=== PATIENT | female | born 1980 ===

== ENCOUNTER 2016-11-24 09:24 | Day surgery (SDC) | payer MEDICAID ==
[2016-11-19 09:13] VITALS: BMI 26.9
[2016-11-24] MEDS ORDERED: Midazolam 2 MG/2 ML VIAL ONE (09:47)
[2016-11-24] MEDS ORDERED: Succinylcholine Chloride 20 mg/ml Syr (5 ml) IV ONE (09:47)
[2016-11-24] MEDS ORDERED: Neostigmine Methylsulfate 3mg/3ml Syringe IV ONE ×2 (09:47→11:32)
[2016-11-24] MEDS ORDERED: Propofol 10 mg/ml Inj (20 ML) ONE (09:47)
[2016-11-24] MEDS ORDERED: Bupivacaine-Epi 0.25%-1:200,000 PF Inj ONE (10:10)
[2016-11-24] MEDS ORDERED: Lidocaine 1% Inj (20ml) ONE (10:10)
[2016-11-24] MEDS ORDERED: ceFAZolin IV 1 gm in Dextrose 1 GM/50 ML BAG IVPB ONE (10:42)
[2016-11-24] MEDS ORDERED: Lidocaine 4% (Laryng-O-Jet) Kit MM ONE ×2 (10:47→11:32)
[2016-11-24] MEDS ORDERED: Morphine 4 MG/ML VIAL ONE (12:24)
--- NOTE | 2016-11-24 12:40 | PCM.SURG1 ---
Surgeon's Initial Post Op Note - Surgeon's Notes Surgeon: Dr. boo Bee Farmer: dharmesh Alaniz PGY2 Type of Anesthesia: General Endo Pre-Operative Diagnosis: cholelithiasis Operative Findings: Cholelithiasis Post-Operative Diagnosis: Cholelithiasis Operation Performed: Robot assisted laparoscopic cholecystectomy Specimen/Specimens Removed: gallbladder Estimated Blood Loss: EBL {In ML}: 10 Blood Products Given: N/A Drains Used: No Drains Post-Op Condition: Good Date of Surgery/Procedure: 11/24/16 Time of Surgery/Procedure: 12:40
[2016-11-24] MEDS ORDERED: HYDROmorphone 0.5 mg/0.5 ml ISec IVP PRN (12:43)
[2016-11-24] MEDS ORDERED: Oxycodone/Acetaminophen 5/325 mg Tab PO PRN (13:00)
[2016-11-24] MEDS: HYDROmorphone 0.5 mg/0.5 ml ISec IVP PRN ×2 (13:01→13:20)
[2016-11-24] MEDS ORDERED: DiphenhydrAMINE 50 mg/ml Inj IM STA (13:47)
[2016-11-24] MEDS ORDERED: DiphenhydrAMINE 50 mg/ml Inj IVP ONE ×2 (14:00→15:15)
[2016-11-24] MEDS ORDERED: DiphenhydrAMINE 50 mg/ml Inj ONE (14:50)
[2016-11-24 14:56] VITALS: O2SAT 100
[2016-11-24 16:02] VITALS: BP 112/76; PULSE 69; RESP 18; TEMP 97.1
--- NOTE | 2016-11-24 23:31 | OP ---
PROCEDURE DATE: 11/24/2016 PREOPERATIVE DIAGNOSES: Cholelithiasis and chronic cholecystitis. POSTOPERATIVE DIAGNOSES: Cholelithiasis and chronic cholecystitis. PROCEDURE DONE: Robotic cholecystectomy. PROCEDURE DONE BY: Dr. Paredes. TANBARK PEELER: Flip Singh, PGY-2 resident. TYPE OF ANESTHESIA: General endotracheal tube anesthesia. ESTIMATED BLOOD LOSS: Around 10 mL. DRAIN: None. PATHOLOGY: Gallbladder with gallstone was sent for the pathology. COMPLICATIONS: None. INTRAOPERATIVE FINDINGS: The patient had changes of chronic cholecystitis and cholelithiasis and on intraoperative steps, this is a 36-year-old female who was diagnosed with chronic cholecystitis and cholelithiasis and the patient was consented for the laparoscopic-assisted robotic cholecystectomy, possible open, brought to the OR, placed supine on the operating table. After induction of the anesthesia, abdomen was prepped and draped in the usual sterile fashion. A supraumbilical transverse incision was made. After incising skin and subcutaneous tissue, the robotic camera port was placed, another three 8 mm robotic camera was placed in upper abdomen. Robot was brought in. Arm 1 and arm 2 were docked and the patient was placed in right side upright position before docking the robot and the gallbladder was retracted cranially. Calot triangle dissection was done. Cystic duct and cystic artery were identified. The intraop firefly was used to identify the ductal anatomy. Now, the cystic duct and cystic artery were clipped at 3 places and cut in between 2 clips nearby the gallbladder, and gallbladder was dissected free from gallbladder fossa, taken in the EndoCatch bag, taken out through the umbilical port site and sent to the table for the pathology. There was proper hemostasis in each and every part of the procedure and all the ports were taken out under vision, pneumo was deflated. Umbilical port site was closed in 2 layers, the fascia with a 0 Vicryl interrupted suture, skin with a 4-0 Monocryl and dry sterile dressing was applied. The patient tolerated the procedure well. Count of the instrument was correct. There was no apparent complication. Jonny Paredes MD [facility] # [id number]
== END 2016-11-24 18:03 | disposition home or self-care (01) ==
LOC: C.SDS 09:24
PROVIDERS: ATTEND Surgery Surgical Critical Care
DX: K80.10 Calculus of gallbladder with chronic cholecystitis without obstruction (principal)
CPT/HCPCS: 47562; 88304; J0131; J0690; J1100; J1170; J1200; J2001; J2250; J2270; J2405; J2704; J2710; J2765; J3010; J7030

== ENCOUNTER 2016-12-03 11:14 | Day surgery (SDC) | payer MEDICAID ==
[2016-11-19 09:12] VITALS: BMI 26.9
[2016-12-03] MEDS ORDERED: ceFAZolin IV 1 gm in Dextrose 1 GM/50 ML BAG IVPB ONE (12:15)
[2016-12-03] MEDS ORDERED: Lidocaine 1% Inj (20ml) ONE (12:15)
[2016-12-03] MEDS ORDERED: Bupivacaine/Epi 0.25%-1:200,000 10 ml PF inj IJ ONE (12:15)
[2016-12-03] MEDS ORDERED: Lactated Ringer's 1,000 ML IV ONE (12:25)
[2016-12-03] MEDS ORDERED: Midazolam 2 MG/2 ML VIAL ONE (12:27)
--- NOTE | 2016-12-03 13:11 | PCM.SURG1 ---
Surgeon's Initial Post Op Note - Surgeon's Notes Surgeon: Dr. Cardozo Aircraft Accessories Mechanic: Ria Drummond Type of Anesthesia: Local Pre-Operative Diagnosis: Sebaceous cyst of the back Operative Findings: Sebaceous cyst 1 by 0.5 cm Post-Operative Diagnosis: Sebaceous cyst Operation Performed: Excision of sebaceous cyst of the back Specimen/Specimens Removed: Sebaceous cyst Estimated Blood Loss: EBL {In ML}: 1 Blood Products Given: N/A Drains Used: No Drains Post-Op Condition: Good Date of Surgery/Procedure: 12/03/16 Time of Surgery/Procedure: 13:11
[2016-12-03] MEDS ORDERED: Oxycodone/Acetaminophen 5/325 mg Tab PO PRN (14:00)
[2016-12-03 15:24] VITALS: BP 122/80; PULSE 77; RESP 20; TEMP 98.2; O2SAT 99
--- NOTE | 2016-12-06 03:02 | OP ---
PROCEDURE DATE: 12/03/2016 PREOPERATIVE DIAGNOSIS: Sebaceous cyst of the right flank, 2 x 2 cm size. POSTOPERATIVE DIAGNOSIS: Sebaceous cyst of the right flank, 2 x 2 cm size. PROCEDURE DONE: Excision of sebaceous cyst of the right flank, 2 x 2 cm size. Layered simple closure of wound 2x1 cm SURGEON: Jonny Paredes MD FINISHING TECHNICIAN: Maira. TYPE OF ANESTHESIA: Local anesthesia plus sedation. ESTIMATED BLOOD LOSS: Around 10 mL DRAINS: None. PATHOLOGY: Sebaceous cyst was sent to the pathology. COMPLICATIONS: None. INTRAOPERATIVE FINDINGS: The patient had approximately 2 x 2 cm sebaceous cyst of the right flank. On intraoperative steps, this is a 36-year-old female who was diagnosed with sebaceous cyst of the right flank and the patient was consented for excision of the sebaceous cyst of the right flank and brought to the OR, placed supine on the operating table. After induction of the sedation, the right flank was prepped and draped, elliptical incision was made. after incising the skin and subcutaneous tissue, upper and lower flaps were created. Sebaceous cyst was completely excised and it was sent to the table for the pathology. The wound was irrigated and the wound was closed in a 2 layers, subcu with 3-0 Vicryl, skin with a 4-0 Monocryl, and one more layer of the skin with 4-0 nylon and dry sterile dressing was applied. The patient tolerated the procedure well. Count of the instruments and gauze was correct. There was no apparent complication. Jonny Paredes MD [facility]
== END 2016-12-03 14:20 | disposition home or self-care (01) ==
LOC: C.SDS 11:14
PROVIDERS: ATTEND Surgery Surgical Critical Care
DX: L72.0 Epidermal cyst (principal)
CPT/HCPCS: 11401; 12031; 88305; J0690; J2250; J7120